=== PATIENT | male | born 1995 | race Caucasian/White ===

== ENCOUNTER 2018-07-19 09:54 | Emergency (ER) | payer BC ==
[2018-07-19 10:40] VITALS: BP 121/75
[2018-07-19] MEDS ORDERED: predniSONE TAB* 20 MG PO ONE (10:54)
--- NOTE | 2018-07-19 10:54 | UC ---
Skin Complaint HPI - HPI Summary HPI Summary: Pt c/o sudden onset of raised, erythematous mild pruritis. Pt denies exposure to poison matty, poison oak, or has no known allergies. - History of Current Complaint Chief Complaint: UCRash Time Seen by Provider: 07/19/18 10:32 Stated Complaint: RASH Hx Obtained From: Patient Onset/Duration: Sudden Onset Skin Exposure Onset/Duration: Hours Ago Timing: Constant Onset Severity: Mild Current Severity: Mild Pain Intensity: 0 Location: Diffuse Character: Pruritus, Hives, Redness, Raised Aggravating Factor(s): Nothing Alleviating Factor(s): Unknown Associated Signs & Symptoms: Positive: Rash Related History: Possible Reaction to: Food, Possible Reaction to: Environmental Exposure - Allergy/Home Medications Allergies/Adverse Reactions: Allergies Allergy/AdvReac Type Severity Reaction Status Date / Time No Known Allergies Allergy Verified 07/19/18 10:40 Review of Systems Constitutional: Negative Skin: Rash Eyes: Negative ENT: Negative Respiratory: Negative Cardiovascular: Negative Gastrointestinal: Negative Genitourinary: Negative Motor: Negative Neurovascular: Negative Musculoskeletal: Negative Neurological: Negative Psychological: Negative Is Patient Immunocompromised?: No All Other Systems Reviewed And Are Negative: Yes PMH/Surg Hx/FS Hx/Imm Hx Previously Healthy: Yes - Surgical History Surgical History: None - Family History Known Family History: Positive: Cardiac Disease - Social History Occupation: Employed Full-time Lives: With Family Alcohol Use: Weekly Substance Use Type: None Smoking Status (MU): Never Smoked Tobacco Have You Smoked in the Last Year: No Physical Exam Triage Information Reviewed: Yes Appearance: Well-Appearing Vital Signs: Initial Vital Signs Temp 97.9 F 07/19/18 10:37 Pulse 73 07/19/18 10:37 Resp 15 07/19/18 10:37 BP 121/75 07/19/18 10:37 Pulse Ox 98 07/19/18 10:37 Vital Signs Reviewed: Yes Eye Exam: Normal ENT: Positive: Hearing grossly normal Dental Exam: Normal Neck exam: Normal Respiratory Exam: Normal Respiratory: Positive: No respiratory distress Cardiovascular Exam: Normal Musculoskeletal Exam: Normal Neurological Exam: Normal Psychological Exam: Normal Skin: Positive: rashes - urticaria Course/Dx - Differential Diagnoses - Skin Complaint Differential Diagnoses: Contact Dermatitis, Urticaria - Diagnoses Provider Diagnoses: urticaria Discharge - Sign-Out/Discharge Documenting (check all that apply): Patient Departure - Discharge Plan Condition: Stable Disposition: HOME Prescriptions: predniSONE TAB* [Deltasone 20 MG TAB*] 20 mg PO DAILY #3 tab Patient Education Materials: Antihistamine (By mouth), Urticaria (ED) Referrals: Edna Hernandez MD [Primary Care Provider] - If Needed - Billing Disposition and Condition Condition: STABLE Disposition: Home Attestation Statement User Type: Provider - I was available for consult. This patient was seen by the ANTHONY. The patient was not presented to, seen by, or examined by me. -[place]
== END 2018-07-19 11:07 | disposition home or self-care (01) ==
LOC: UCEAST 09:54
DX: L50.9 Urticaria, unspecified (principal)
CPT/HCPCS: 36415; 86703; 99202; G0463; J7512